=== PATIENT | female | born 1975 | race Caucasian/White ===

== ENCOUNTER 2017-07-29 08:36 | Outpatient (CLI) | payer OTHER ==
--- NOTE | 2017-07-31 10:19 | HISTORY AND PHYSICAL REPORT ---
REFERRING PHYSICIAN: Dr. Serafin Crowell Dear Dr. Crowell: HISTORY OF PRESENT ILLNESS: I had the opportunity of seeing Nay Allan as an outpatient at [facility]. As you are aware, Ms. Allan is a very nice 41-year-old white female who presents with a greater than 20 year history of both rectal and vaginal and pelvic pain. She tells me that this began about 20 plus years ago insidiously and she was diagnosed at one point with endometriosis at age 25 and underwent a partial hysterectomy at [facility]; and at that point, the symptoms became worse. She tells me that she has constant rectal pain. She has abdominal pain associated with rectal pain and that she has dyspareunia and to the point that she has been debilitated and unable to have sexual contact for the last year. She underwent pelvic floor therapy times multiple sessions. She has also realized TENS unit, physical therapy, and more recently underwent an exploratory laparoscopy with adhesiolysis 6 weeks ago and continues to complain of no improvement in her symptoms. She was scheduled with the [facility], however, there was some problem surrounding her appointment at that time and it was elected to send her for an evaluation with me today. She denies symptoms of radicular pain. She denies pain with urination. She says she does have pain with defecation. She takes ibuprofen and she was at one point on OxyContin and Percocet which seemed to control her symptoms. Also, she was taking alprazolam, Effexor, and trazodone. She has had an MRI of the pelvis which was grossly normal. PAST MEDICAL HISTORY: 1. History of vision problems. 2. Heart murmur. 3. Asthma or bronchitis. 4. Precancerous cells. 5. Stomach ulcers or gastritis. 6. Urinary incontinence. 7. Depression and anxiety. 8. Chronic pain. PAST SURGICAL HISTORY: 1. Partial hysterectomy at age 25 due to precancerous cells. 2. Tonsillectomy. 3. Breast biopsy. 4. Most recently exploratory pelvic surgery by Dr. Crowell in the last 6 weeks. DAILY MEDICATIONS: 1. Alprazolam 1 mg daily. 2. Effexor 75 mg daily. 3. Trazodone 100 mg at bedtime. 4. Zofran 8 mg p.r.n. 5. ProAir inhaler p.r.n. 6. Dulera inhaler daily. 7. Advair inhaler daily p.r.n. ALLERGIES: 1. Phenergan. 2. Aspirin. 3. Bactrim. 4. Morphine. SOCIAL HISTORY: She is a current yaui-nukk-pah-day smoker. She drinks alcohol socially on occasion. She admittedly uses marijuana recreationally. She is . She has 2 children. She completed the 10th grade. She is not currently employed. Previous occupation was in "nursing." She is not currently disabled. FAMILY HISTORY: Family history includes her father with stroke, heart disease, and pain problems. Mother with diabetes, cancer, and pain problems. Siblings with cancer and pain problems. A daughter with pain problems. REVIEW OF SYSTEMS: In the last month or so, she reports weight gain, fever, chills, night sweats, irregular or fast heartbeats, urinary incontinence, stomach pain or upset stomach, diarrhea, feeling depressed, and feeling anxious. Pain is worsened with prolonged standing, bending, sitting, walking, twisting, getting up from a chair, cough, sneeze, sexual activity, driving, gradually worsens as the day progresses, and in any position for too long. Pain is improved with lying down. PHYSICAL EXAMINATION: Vital Signs: BP: 122/60, P: 78, R: 20, oxygen saturation is 98% on room air. General: The patient is well nourished, well developed, and in no apparent distress. Awake, alert, and oriented. HEENT: Pupils are equal, round, and reactive to light and accommodation. Extraocular movements intact. No facial droop. Neck: There is full range of motion of the cervical spine. No evidence of adenopathy. Thyroid is nontender, not enlarged. Carotids are without bruits. Chest: Clear to auscultation bilaterally. Normal chest excursion. Heart: Regular rate and rhythm without murmur. Abdomen: There is reproducible abdominal lower quadrant pain, greater on the right than on the left. There is negative Tinel sign of the iliohypogastric nerve, ilioinguinal nerve, or genitofemoral nerve root distribution. Pelvic Exam: There is evidence of a laparoscopic scar in the left pelvis area. Rectal Exam: Deferred. Motor/sensory: Intact in the upper and lower extremities. Moves all extremities freely. Back: There is a negative straight leg raise. Negative femoral nerve stretch. Negative KELSI. ASSESSMENT: 1. Chronic pelvic floor rectal and vaginal pain. 2. Chronic abdominal wall pain. 3. Peripheral causalgia. PLAN: At this point, I discussed possible etiologies of her pain and that we really do not have a good handle on her underlying pathophysiology and that I would recommend a trial of gabapentin, as if this would help, it would indicate a neuropathic component to her pain symptoms. I would also start her on a Butrans 10 mcg patch and consider increasing to a 20 mcg patch. Finally, I have given her information on DRG stimulation and the possibility of a caudal epidural block of the sacral plexus. She is in agreement today and she seems very receptive with our treatment plan, and I am going to seek approval for a caudal/sacral injection in the near future. I do not think that a ganglion impar injection would likely benefit this lady. Dr. Crowell, thank you for allowing me to take part in the care of this nice lady. I appreciate the opportunity to take part in the care of your patients. cc: Dr. Serafin Crowell, [facility]
== END 2017-07-29 08:38 ==
LOC: OUT 08:36
PROVIDERS: ATTEND Anesthesiology Pain Medicine
DX: R10.2 Pelvic and perineal pain (principal); R10.9 Unspecified abdominal pain; G57.70 Causalgia of unspecified lower limb
CPT/HCPCS: 99213; 99214

== ENCOUNTER 2017-09-30 11:32 | Outpatient (CLI) | payer OTHER ==
--- NOTE | 2017-10-03 08:56 | PAIN CLINIC PROGRESS NOTES ---
REASON FOR VISIT: Ms. Allan follows up today with a history of pelvic floor pain. This nice 41- year-old has had an extensive workup and testing. She has had an abdominal/ pelvic CT, lumbar MRI, and a pelvic ultrasound. She has had several procedures done including E-Stim of the pelvis, exploratory laparoscopy followed by a second surgery with a partial hysterectomy followed by a third surgery with a complete hysterectomy and bilateral oophorectomy performed with an adhesiolysis. She continues to have pelvic floor pain of unknown etiology. I started her on gabapentin 900 mg a day and she thinks that the gabapentin has improved her symptoms and this is consistent with a neuropathic component to her pain symptoms. She says that she had itching and swelling on a 10 mcg Butran's patch and I questioned her as to whether this may be more of a seasonal allergy. I have recommended decreasing to a 5 mcg Butran's patch. ASSESSMENT: 1. Chronic pelvic floor pain which becomes worse with activity. 2, Likely a neuropathic component. 3. History of multiple testing and surgical interventions. PLAN: At this point, I cannot conceivably think of more potential testing that could be done for perirectal and vaginal pain. I have told her that I would like to try a palliative caudal epidural steroid injection and to this extent we should work towards getting approval for a palliative caudal epidural. Finally, for her neuropathic pain of a peripheral nature, a DRG stimulator is on label and she tells me that she would like to get more information on a DRG stimulator. I told her at this point, I would not recommend a DRG trial without exhausting other treatment options. We will also provide her with a higher prescription of gabapentin up to 900 mg at bedtime and start her on p.r.n. prochlorperazine. [facility]
== END 2017-09-30 11:33 ==
LOC: OUT 11:32
PROVIDERS: ATTEND Anesthesiology Pain Medicine
DX: R10.2 Pelvic and perineal pain (principal)
CPT/HCPCS: 99213